=== PATIENT | male | born 2000 | race Asian ===

== ENCOUNTER 2024-01-30 18:54 | Emergency (ER) | payer BC, SELFPAY ==
[2024-01-30 18:59] VITALS: BP 115/75
[2024-01-30 19:43] VITALS: BP 111/79
[2024-01-30 20:00] VITALS: BP 105/75; BMI 17.5
[2024-01-30 20:09] LABS: Urine Albumin 1+ (Neg - Trace); Urine Bilirubin Negative (Negative); Urine Character Clear (Clear); Urine Color Amber; Urine Glucose Negative (Negative); Urine Ketone Negative (Negative); Urine Leukocyte Negative (Negative); Urine Nitrite Negative (Negative); Urine Occult Blood 1+ (Negative); Urine Urobilinogen Negative (Neg - 1+)
[2024-01-30 20:15] LABS: ALT (SGPT) 122 U/L (0-50); AST (SGOT) 141 U/L (17-59); Albumin 3.9 g/dl (3.5-5.0); Alkaline Phosphatase 130 U/L (38-126); Blood Urea Nitrogen 9 mg/dl (9-20); Calcium 8.7 mg/dl (8.4-10.2); Carbon Dioxide 19 mmol/L (22-30); Chloride 96 mmol/L (98-107); Estimated Creatinine Clearance 104 ml/min; Glucose 113 mg/dl (70-99); Potassium 4.2 mmol/L (3.5-5.1); Sodium 134 mmol/L (135-145); Total Bilirubin 0.4 mg/dl (0.2-1.3); Total Protein 7.4 g/dl (6.3-8.2); eGFR > 60.00
[2024-01-30 20:19] LABS: COVID-19 Antigen Negative (Negative)
[2024-01-30 20:24] LABS: Lactic Acid 0.9 mmol/L (0.7-2.0)
[2024-01-30 20:25] LABS: Urine Bacteria Few (Negative); Urine Mucus Moderate; Urine Red Blood Cell 0-2 /HPF (0-2)
[2024-01-30 20:35] LABS: % Basophils 0.3 % (0-2); % Immature Granulocytes 0.3 % (0-0.5); % Lymphocytes 23.6 % (20.5-51.1); % Monocytes 6.5 % (1.7-9.3); % Neutrophils 69.3 % (42.2-75.2); Absolute Lymphocytes 0.7 10^3/uL (1.2-3.4); Absolute Monocytes 0.2 10^3/uL (0.1-0.6); Hematocrit 34.2 % (39.0-52.0); Hemoglobin 11.8 g/dL (13.0-18.0); Mean Corp Hgb Conc. 34.5 g/dL (33.0-37.0); Mean Corpuscular Volume 69.5 fL (80.0-94.0); Mean Platelet Volume 9.2 fL (7.4-10.4); Nucleated Red Blood Cells % 0 % (-); Platelet Count 214 10^3/uL (130-400); Red Blood Cell Count 4.92 10^6/uL (4.70-6.10); Red Cell Dist. Width 15.3 % (11.5-14.5); White Blood Cell Count 2.9 10^3/uL (4.8-10.8)
--- NOTE | 2024-01-30 20:43 | ED.GENMED ---
Addendum entered and electronically signed by Lee Fontana PA-C 01/31/24 10:12:
Preliminary blood culture result demonstrates gram-negative bacilli. Called patient and advised he come back for evaluation
Original Note:
History of Present Illness
General
Chief Complaint: Fever
Time Seen by Provider: 01/30/24 19:53
History of Present Illness
History of Present Illness:
23-year-old male with history of Crohn's disease presents to the emergency department for evaluation of sore throat, body aches, chills, and generalized weakness associated with persistent fever ongoing for the past 8 days. Was recently in [place]
for 3 weeks and returned to the [place] 9 days before onset of symptoms. Reports mild dry cough and loose stool but denies any chest pain, vomiting, or rashes. No ill contacts at this travel libertarian. Does note that it was monsoon season in
[place] and there were numerous mosquitoes.
Review of Systems
Review of Systems
Allergies reviewed?: Yes
All Other Systems: ROS reviewed and negative except as documented in HPI and ROS
Phy Exam
Physical Exam
Physical Exam:
GEN: Well appearing, NAD, WDWN
Eyes: PERRLA, EOMs intact, no scleral icterus
HENT: NCAT, oral mucosa moist, no JVD, no cervical adenopathy.
Lungs: CTAB, no wheezes, rales, rhonchi, normal chest wall excursion
Cardiac: RRR, no M/R/G, no peripheral edema. Radial pulses 2+ bilat
Abdomen: S, NT, ND, NABS, no masses or hepatosplenomegaly
Neuro: AO x 3, no focal deficits to BUE/BLE, normal sensation throughout
MSK: No gross deformity or ecchymosis. No edema. No digital clubbing
Skin: No rashes, petechiae. Normal color, no pallor or jaundice.
Psych: Calm, cooperative, proper hygiene
Sepsis
Sepsis Screening
Sepsis Assessment: Sepsis Ruled Out
Sepsis Screen
Sepsis Screen: Sepsis Ruled Out
Date: 01/30/24
Time: 23:14
Course
Orders/Labs/Results
Orders:
Orders
01/30/24 19:34
Electrocardiogram (*1) Urgent
Reason for Study: Other
Other Reason for Exam: Possible Sepsis
Cardiac Monitoring- Treatment ONCE
IV Insert/Care/Rem.- Treatment PRN
O2 Therapy [RESP] Urgent
Titrate/Wean O2 to maintain O2 sat greater than (%): 93
Special Instructions: TO MAINTAIN CONTINUOUS O2 SATS > OR = 93%
Pulse Ox/cont/shift [RESP] Urgent
Quantity: 1
Special Instructions: CONTINUOUS
01/30/24 19:35
EKG- Treatment ONCE
01/30/24 19:51
Complete Blood Count/With Diff Urgent
Comprehensive Metabolic Panel Urgent
Monotest Urgent
Comment: ADD ON
Urinalysis Reflex To Culture Urgent
Date Specimen was Collected: 01/30/24
Time Specimen was Collected: 19:35
Urine Microscopic Reflex Cult Urgent
01/30/24 19:54
COVID-19 Antigen Routine
Source: Nasal Swab
Influenza A+B Rapid Molecular Urgent
MIK Source: Nasal Swab
Specimen Description:
01/30/24 19:58
Lactic Acid Q4H
Comment: ON ICE, CANCEL 2ND ORDER IF FIRST LACTIC ACID LEVEL <2
01/30/24 20:42
CR Chest - 2 Views Urgent
Comment:
Reason For Exam: FUO
01/30/24 20:57
Blood Culture Routine
MIK Source: Blood/Venous
Specimen Description:
Blood Culture Urgent
MIK Source: Blood/Venous
Specimen Description:
01/30/24 21:44
Add On- LAB Urgent
Tests Added?: monotest
Abnormal Lab Results
01/30/24
19:51
WBC 2.9 L 10^3/uL
(4.8-10.8)
Hgb 11.8 L g/dL
(13.0-18.0)
Hct 34.2 L %
(39.0-52.0)
MCV 69.5 L fL
(80.0-94.0)
MCH 24.0 L pg
(27.0-31.0)
RDW 15.3 H %
(11.5-14.5)
Absolute Lymphs (auto) 0.7 L 10^3/uL
(1.2-3.4)
Sodium 134 L mmol/L
(135-145)
Chloride 96 L mmol/L
(98-107)
Carbon Dioxide 19 L mmol/L
(22-30)
Glucose 113 H mg/dl
(70-99)
AST 141 H U/L
(17-59)
ALT 122 H U/L
(0-50)
Alkaline Phosphatase 130 H U/L
(38-126)
Ur Occult Blood Reflex 1+ A
(Negative)
Urine Bacteria (Reflex) Few A
(Negative)
Urine Albumin (Reflex) 1+ A
(Neg - Trace)
01/30/24 19:51
01/30/24 19:51
Vital Signs
Initial and Last Documented VS:
Initial Vital Signs
Temp Pulse Resp BP Pulse Ox
100.7 F H 117 20 115/75 100
01/30/24 18:59 01/30/24 18:59 01/30/24 18:59 01/30/24 18:59 01/30/24 18:59
Last Documented Vital Signs
Temp Pulse Resp BP Pulse Ox
100.7 F H 112 25 100/70 99
01/30/24 18:59 01/30/24 21:15 01/30/24 20:30 01/30/24 21:00 01/30/24 20:45
MDM/Problems Addressed
MDM/Problems Addressed:
Patient is overall well-appearing and broad workup reveals no significant abnormalities. Mild leukopenia likely indicative of self-limited viral syndrome. Highly unlikely this case represents malaria given the patient's overall well appearance.
Discussed further supportive care and return parameters
*Critical Care Note
Total Time (30-74mins, 75-104mins- exclusive of procedures): Not Applicable
ED Attending Note
-
Portions of this chart may have been created with voice recognition software.� Occasional wrong word or��sound alike� substitutions may have occurred due to the inherent limitations of voice recognition software.
Discharge Plan
Departure
Patient Disposition: Home (Routine Discharge)
Date of Disposition: 01/30/24
Time of Disposition: 22:34
Patient with high blood pressure during this ER visit?: No
Discharge Problem:
Acute viral syndrome
Instructions: Viral Syndrome (DC)
Referrals:
Karlos Carcamo MD [Family Provider] -
Interventions
Interventions:
*Risk Screen - Suicide Last Done: 01/30/24 18:59
*General Assessment Last Done: 01/30/24 18:59
*Neglect/Abuse Screening Last Done: 01/30/24 18:59
ED- Fall Risk Assessment Last Done: 01/30/24 18:59
*ED COVID-19 Vaccine History Last Done: 01/30/24 18:59
ED- Neurological Assessment Last Done: 01/30/24 20:00
ED-Skin Assessment Last Done: 01/30/24 20:00
Discharge Date and Time
Print Language: STATELESS
[2024-01-30 21:00] VITALS: BP 100/70
[2024-01-30 22:19] LABS: Monotest Negative (Negative)
== END 2024-01-30 22:50 | disposition home or self-care (01) ==
LOC: EMR 18:54
PROVIDERS: Student in an Organized Health Care Education/Training Program; EMERGENCY PHYSICIAN Emergency Medicine; FAMILY PHYSICIAN Family Medicine
DX: B34.9 Viral infection, unspecified (principal)
CPT/HCPCS: 99285; 71046; 80053; 81003; 81015; 83605; 85025; 86308; 87040; 87149; 87184; 87186; 87205; 87502; 87811; 93005

== ENCOUNTER 2024-01-31 14:02 | Inpatient (IN) | payer BC, SELFPAY ==
[2024-01-31 11:52] VITALS: BP 107/69
--- NOTE | 2024-01-31 12:35 | ED.GENMED ---
History of Present Illness
General
Chief Complaint: Abnormal Lab Value
Time Seen by Provider: 01/31/24 12:33
History of Present Illness
History of Present Illness:
23-year-old male with history of Crohn's presents the emergency department due to fever of unknown origin and a positive blood culture. He was seen in the emergency department yesterday by myself for 8 days of fever, at this time and is now 9 days
of consistent fever. Broad workup yesterday was unrevealing except for leukopenia and transaminitis. Blood cultures were sent and 1 out of 2 returned positive for gram-negative rods this morning thus he was called to come back to the hospital. He
denies any change to his symptoms compared to yesterday
Review of Systems
Review of Systems
Allergies reviewed?: Yes
All Other Systems: ROS reviewed and negative except as documented in HPI and ROS
Phy Exam
Physical Exam
Physical Exam:
GEN: Well appearing, NAD, WDWN
HEENT: Oral mucosa moist, no scleral icterus
Cardiac: Regular rate
Lung: No respiratory distress, no tachypnea
MSK: No gross deformity or injuries
Skin: Good color, no pallor or jaundice, no rashes
Neuro: AO x3, moves all extremities freely
Psych: Calm, cooperative
Course
Orders/Labs/Results
Orders:
Orders
01/31/24 Breakfast
Regular
At Your Request: Full Participation
01/31/24 13:12
Complete Blood Count/With Diff Urgent
Comprehensive Metabolic Panel Urgent
Manual Differential Urgent
Blood Culture Urgent
MIK Source: Blood/Venous
Specimen Description:
01/31/24 13:39
Admit/Transfer Patient As Directed
Co-Sign Provider:
Level of Care: Inpatient admission
Assign to:: Medical/Surgical
Physician / Group: maged
Diagnosis: fever
Reason for Hospitalization: fever
Expected length of stay greater than two midnights?: Yes
ELOS- Estimated Length of Stay in days: 3
I certify the patient meets the requirements for IP care: Yes
PRN Pain Medication Management As Directed
May give lesser potent ordered pain med per pt: Yes
preference::
Protocol:: Medication orders for pain may be administered in a
manner that supports deferring to patient preference
when the pt is:
- Requesting an ordered lesser potent pain medication.
Least to most potent pain medications are defined
as: acetaminophen < NSAID < tramadol < opioids
(morphine, oxycodone, hydromorphone).
- Requesting a lesser dose of the same medication IF
ORDERED.
- Requesting a less intrusive route of administration
if both routes are prescribed by the provider (PO <
IV).
01/31/24 13:40
Code Status As Directed
Resuscitation Status: Full Code
01/31/24 13:58
Cefepime HCl [Maxipime] 2,000 mg IV NOW STA
01/31/24 14:01
Sterile Water [Sterile Water For Injection] 10 ml IV NOW STA
01/31/24 14:19
Blood Culture Routine
MIK Source: Blood/Venous
Specimen Description:
01/31/24 16:00
0.9% Sodium Chloride 1000 ml [Nss] 1,000 ml IV 125 mls/hr
Acetaminophen [Tylenol] 650 mg PO Q4HPRN PRN
Bisacodyl [Dulcolax] 10 mg RECTAL [id number] PRN
Cefepime HCl [Maxipime] 2,000 mg IV Q8H
Docusate W/Senna [Senokot-S] 1 tablet PO BIDPRN PRN
Polyethylene Glycol Powder [Miralax] 17 grams PO DAILYPRN PRN
01/31/24 16:00
Activity As Directed
Activity Level: As Tolerated
Venous Foot Pumps As Directed
Location: Bilateral feet
Vital Signs As Directed
Frequency: Per unit guidelines
DX Deep Vein Thrombosis Video Routine
02/01/24 06:00
CMP [Comprehensive Metabolic Panel] IN AM
Complete Blood Count/With Diff IN AM
02/01/24 08:00
Cholecalciferol (Vitamin D3) [VITAMIN D3 (cholecalciferol)] 25 mcg PO DAILY
Ferrous Sulfate [Feosol] 325 mg PO DAILY
Vitamin B Complex with C [B COMPLEX w/VITAMIN C] 1 caplet PO DAILY
02/02/24 06:00
CMP [Comprehensive Metabolic Panel] IN AM
Complete Blood Count/With Diff IN AM
02/03/24 06:00
CMP [Comprehensive Metabolic Panel] IN AM
Complete Blood Count/With Diff IN AM
02/04/24 06:00
CMP [Comprehensive Metabolic Panel] IN AM
Complete Blood Count/With Diff IN AM
02/05/24 06:00
CMP [Comprehensive Metabolic Panel] IN AM
Complete Blood Count/With Diff IN AM
Abnormal Lab Results
01/31/24
13:12
WBC 3.0 L 10^3/uL
(4.8-10.8)
RBC 4.28 L 10^6/uL
(4.70-6.10)
Hgb 10.2 L g/dL
(13.0-18.0)
Hct 29.6 L %
(39.0-52.0)
MCV 69.2 L fL
(80.0-94.0)
MCH 23.8 L pg
(27.0-31.0)
RDW 15.2 H %
(11.5-14.5)
Band Neutrophils 12 H %
(0-3)
Lymphocytes (Manual) 10 L %
(20-51)
Sodium 131 L mmol/L
(135-145)
Carbon Dioxide 20 L mmol/L
(22-30)
Glucose 121 H mg/dl
(70-99)
Calcium 8.2 L mg/dl
(8.4-10.2)
AST 109 H U/L
(17-59)
ALT 108 H U/L
(0-50)
Albumin 3.3 L g/dl
(3.5-5.0)
01/31/24 13:12
01/31/24 13:12
Vital Signs
Initial and Last Documented VS:
Initial Vital Signs
Temp Pulse Resp BP Pulse Ox
99.2 F 111 18 107/69 98
01/31/24 11:52 01/31/24 11:52 01/31/24 11:52 01/31/24 11:52 01/31/24 11:52
Last Documented Vital Signs
Temp Pulse Resp BP Pulse Ox
99.6 F 90 17 105/64 99
01/31/24 16:00 01/31/24 16:00 01/31/24 16:00 01/31/24 16:00 01/31/24 16:00
MDM/Problems Addressed
MDM/Problems Addressed:
Will admit for further workup and clarification of his positive blood culture. Interestingly he is more anemic than yesterday which would potentially suggest an underlying etiology such as malaria which was not felt to be highly likely yesterday.
*Critical Care Note
Total Time (30-74mins, 75-104mins- exclusive of procedures): Not Applicable
ED Attending Note
-
Portions of this chart may have been created with voice recognition software.� Occasional wrong word or��sound alike� substitutions may have occurred due to the inherent limitations of voice recognition software.
Discharge Plan
Departure
Patient Disposition: Admit
Date of Disposition: 01/31/24
Time of Disposition: 13:10
Admit to: Med/Surg
Presentation/result/management discussed w/ accepting MD/DO: Hospitalist
Discharge Problem:
Fever of unknown origin (FUO), Positive blood culture
Interventions
Interventions:
*Risk Screen - Suicide Last Done: 01/31/24 11:52
*General Assessment Last Done: 01/31/24 11:52
*Neglect/Abuse Screening Last Done: 01/31/24 11:52
ED- Fall Risk Assessment Last Done: 01/31/24 13:17
*ED COVID-19 Vaccine History Last Done: 01/31/24 13:17
*Nursing Disposition Last Done: 01/31/24 16:01
Discharge Date and Time
Discharge Date/Time: 01/31/24 15:50
--- NOTE | 2024-01-31 13:12 | HPS.HSE ---
Family Physician
-
Family Physician:
Chief Complaint
-
fever
History of Present Illness
23-year-old male presented to us with fever for 10 days. he was in [place] three weeks ago. he was doing fine and a ten days ago, he started having fever. fever was from 101-104. he was taking Tylenol, NyQuil and DayQuil. denied runny nose,
congestion, cough. stated PETERSON and dizzy. denied abdominal pain,n,v,d. denied dysuria or hematuria.patient lost 6lbs in 6 weeks due to the travel, of his grandfather.
patient was evaluated in ER yesterday. blood culture from yesterday grew pam negative Bacilli. admitting for further management.
Medical History
Past Medical History
Past Medical History: Reports None
Past Surgical History: Reports None
Social History
Tobacco: Non-smoker
Alcohol: None
Drug: None
Personal: Single
Living: With Family
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
Family History
Family History: Not pertinent
Allergies / Home Medications
Allergies reflects when Allergies were last updated in [facility].
Home Medications with original date entered in [facility]
Allergy/Medication List:
Allergies
Allergy/AdvReac Type Severity Reaction Status Date / Time
No Known Allergies Allergy Verified 01/30/24 18:59
Home Medications
acetaminophen 500 mg tablet (Tylenol Extra Strength) 500 mg PO Q6HPRN PRN mild pain 01/31/24
cholecalciferol (vit D3) 1,000 unit-vitamin K2 (MK4) 100 mcg tablet 1 tab PO DAILY 01/31/24
ferrous sulfate 105 mg-C 500 mg-folic acid 800 mcg tablet,extend.rel 1 tab PO DAILY 01/31/24
vitamin B complex 1 tab PO DAILY 01/31/24
Review of Systems
-
Constitutional: Reports Fever
EENT: Reports No Symptoms
Respiratory: Reports No Symptoms
Cardiac: Reports No Symptoms
Abdomen/GI: Reports No Symptoms
: Reports No Symptoms
Musculoskeletal: Reports No Symptoms
Skin: Reports No Symptoms
Neurological: Reports Dizzy and Headache
Endocrine: Reports No Symptoms
Hematologic/Lymphatic: Reports No Symptoms
Psych: Reports No Symptoms
Physical Exam
Vital Signs
Vital Signs
Temp Pulse Resp BP Pulse Ox
99.2 F 111 18 107/69 98
01/31/24 11:52 01/31/24 11:52 01/31/24 11:52 01/31/24 11:52 01/31/24 11:52
Physical Exam
General: Well Developed, Well Nourished and No Apparent Distress
HEENT: NormoCephalic, Moist mucous membranes and Atraumatic
Respiratory: Clear
Cardiac: S1/S2 and Regular Rhythm; No Murmur or Rub
GI: Soft, Non Tender, Non Distended and Normal Bowel Sounds; No Organomegaly
Rectal: Deferred by Provider
Musculoskeletal: No Clubbing, No Cyanosis and No Edema
Skin: No Rash
Neuro: AO x 3 and Nonfocal/grossly intact
Psych: Calm
Data Reviewed
-
Diagnostic Radiology: Report Reviewed by me
Lab Data: Labs Reviewed by me
Impression/Plan
-
#fever/gram negative bacteremia
-wbc 3.0
-blood culture from 01/29 with gram negative
-repeat blood culture
-Tylenol prn for fever
-chest x ray normal
-covid, flu negative
-iv cefipime continued
-ctm
#anemia of chronic disease
-hgb 10.2
-ferrous sulfate continued
#transaminitis
-denied abdominal pain
-ctm
#hyponatremia hypovolemic
-fluids continued
-monitor BMP
#DVT prophylaxis
-scd
#CODE Status
-full code
[2024-01-31 13:17] VITALS: BP 92/68
[2024-01-31 13:26] LABS: Hematocrit 29.6 % (39.0-52.0); Hemoglobin 10.2 g/dL (13.0-18.0); Mean Corp Hgb Conc. 34.5 g/dL (33.0-37.0); Mean Corpuscular Hgb 23.8 pg (27.0-31.0); Mean Corpuscular Volume 69.2 fL (80.0-94.0); Platelet Count 197 10^3/uL (130-400); Red Blood Cell Count 4.28 10^6/uL (4.70-6.10); Red Cell Dist. Width 15.2 % (11.5-14.5)
[2024-01-31 13:39] LABS: ALT (SGPT) 108 U/L (0-50); AST (SGOT) 109 U/L (17-59); Albumin 3.3 g/dl (3.5-5.0); Alkaline Phosphatase 96 U/L (38-126); Blood Urea Nitrogen 11 mg/dl (9-20); Calcium 8.2 mg/dl (8.4-10.2); Carbon Dioxide 20 mmol/L (22-30); Chloride 98 mmol/L (98-107); Glucose 121 mg/dl (70-99); Potassium 3.7 mmol/L (3.5-5.1); Sodium 131 mmol/L (135-145); Total Bilirubin 0.3 mg/dl (0.2-1.3); Total Protein 6.4 g/dl (6.3-8.2); eGFR > 60.00
[2024-01-31 14:17] LABS: Absolute Neutrophils -Man Diff 2.5 10^3/uL (1.4-6.5); Band Neutrophils 12 % (0-3); Lymphocytes 10 % (20-51); Monocytes 4 % (2-9); Myelocytes 1 % (-); Platelets Checked Yes; Segmented Neutrophils 73 % (42-75)
[2024-01-31 14:18] LABS: Anisocytosis 1+; Hypochromasia 1+; Normal RBC Morphology No; Polychromasia 1+; Total Cells Counted 100
--- NOTE | 2024-01-31 14:45 | W.PN.UPDATE ---
Update Note
Progress Note Update
This is an addendum to the H&P written by Hailee Gotti on 01/31/2024. Patient seen and examined independently with OIL OPERATOR.
23-year-old male without past medical history recently visited [facility] 2 weeks ago here with fever, dizziness, headache, neck pain starting 10 days ago. No more neck pain. No pulmonary, GI symptoms. No joint pains. He came to emergency room
yesterday with cultures growing 2 out of 2 gram-negative bacteremia. Chest x-ray yesterday was unremarkable.
Labs show leukopenia, transaminitis. Unclear source of infection. Could be indicative of malaria. No symptoms of dengue. Start cefepime. Check hepatitis panel. Will need to check peripheral smear. ID consulted.
--- NOTE | 2024-01-31 14:54 | CON.ID ---
Consultation
-
Date/Time Consultation Requested: January 31, 2024 1430
Date/Time Consultation Performed: January 31, 2024 1455
Requesting Provider: Hailee Gotti
Performing Provider: Dr. Rhoda Givens
Reason for Consultation: Fever, GNR bacteremia
Chief Complaint / Past History
Chief Complaint
Fevers
History of Present Illness
History obtained from the patient, his sister, and mother at bedside. 23-year-old male recently diagnosed with Crohn's who presents to the hospital today with gram-negative kathryn bacteremia. He and his family recently traveled to [facility] due
to the of his grandfather. He stayed in [place] x 3 weeks with return date January 14. On January 21 he developed fevers, headache, dizziness, pain on the back of his neck. No sore throat. Headache,dizziness, neck pain resolved. However
the fevers persisted as high as 104.1. Occasional night sweats. No nausea or vomiting. No abdominal pain. Has slight loose stools. He was taking Tylenol 500 mg every 6 hours as needed. He then went to an urgent care and he was diagnosed with a
viral illness. He was recommended to take Tylenol 1000 mg twice a day as needed. He then saw his PCP last week and again he was diagnosed with a viral illness. Tylenol does decrease back to 500 mg every 6 hours as needed. He continued to have
fevers and therefore presented to the ER January 29. Temperature 100.7 . COVID-negative. Influenza negative. UA neg. Chest x-ray normal. LFTs elevated. Monoscreen negative. Blood cultures drawn and he was discharged to home. Today he
received a call from the ED and the blood cultures are positive for gram-negative rods. He therefore returned to the ER. While in [place], he was worked up for chronic epigastric discomfort with nausea. He underwent upper endoscopy which was
normal. CAT scan of the abdomen pelvis showed colonic thickening. On January 07, he underwent colonoscopy and was told colon was inflamed. Colon biopsy was positive for Crohn's, negative AFB. After the colonoscopy he had a flareup of the
epigastric discomfort and nausea. While in [place], he ate well cooked meals. He always drank from bottled water. No ice. At his grandfather's , the food was catered. However no one else became ill eating the same food. He did not receive
travel counseling prior to his trip due the urgency of the matter. He and his sister stayed in the clean apartment. He stayed in the city the whole time. No animal exposure. He was bitten by mosquitoes. [place] the [place], he was initially
fine until 01/21. No ill contacts. He takes public transportation to [facility] for his studies.
Past History
Additional Past Medical History:
Crohn's dx'd in [place] s/p EGD, CT a/p, then colonoscopy 01/08/2024
Chronic leukopenia
Chronic anemia
Allergy History:
No Known Allergies Allergy (Verified 01/30/24 18:59)
Medications Reviewed: Yes
Current Antibiotics:
cefepime
Social History
Tobacco: Non-Smoker
Alcohol: None
Drug: None
Personal: Single
Living: With Family (Sister and mother)
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
Family History
Family History: Not Pertinent
Review of Systems
Review of Systems
General: Fever, Chills and Change in Appetite
HEENT: Negative Lymphadenopathy, Stiff Neck, Sinus Problems, Headache or Pharyngitis
Cardiovascular: Negative Chest Pain or Dyspnea
Respiratory: Negative Dyspnea or Cough
Gasteroenterology: Weight Loss; Negative Nausea or Vomiting
Genital / Urological: Negative Dysuria or Flank Pain
Endocrine: Weakness
Musculoskeletal: Negative Joint Pain or Joint Swelling
All systems: All other systems were reviewed and were negative
Vital Signs
Temp Pulse Resp BP Pulse Ox
99.1 F 96 16 92/68 98
01/31/24 13:17 01/31/24 13:17 01/31/24 13:17 01/31/24 13:17 01/31/24 13:17
Physical Exam
Physical Exam
Constitutional: No Acute Distress, Comfortable and Other (Thin)
Head: Other (No frontal or maxillary sinus tenderness)
Eyes: No Conjunctival Hemorrhage and Sclera Anicteric
Pharynx: Benign
Oral: No Thrush and No Ulcers
Lymph Nodes: Negative Lymphadenopathy
Cardiovascular: Regular Rate and S1/S2; Negative Murmur
Pulmonary: Clear
Gastrointestinal: Soft, Non Tender, Non Distended and Normal Bowel Sounds
Genito-Urinary: Negative CVA Tenderness
Skin: Negative Rash
Neurological: AO x 3
Lab / Diagnostic Study Results
01/31/24 13:12
01/31/24 13:12
Total Counted 100 01/31/24 13:12
Abs Neuts (Manual) 2.5 10^3/uL (1.4-6.5) 01/31/24 13:12
Segmented Neutrophils 73 % (42-75) 01/31/24 13:12
Band Neutrophils 12 % (0-3) H 01/31/24 13:12
Lymphocytes (Manual) 10 % (20-51) L 01/31/24 13:12
Microbiology Results
Micro:
01/31/24 14:19 Blood Culture - Pending
Blood/Venous
01/31/24 13:12 Blood Culture - Pending
Blood/Venous
01/30/24 CXR: Normal
Assessment / Plan
# Anaerobic GNR bacteremia (2 sets)
# Fevers, onset 01/22/24
# Elevated transaminases
# Recent travel to [place] x 3 weeks, return date 01/15/24
# Recent dx Crohn's in [place], s/p EGD, then colonoscopy 01/08/24
# Anemia - chronic
# Leukopenia -chronic
- Unlikely typhoid fever as S. typhi is aerobic GNR
- Suspect Fusobacterium over Bacteroides, Prevotella
- Ordered CT a/p with IV and oral contrast to look for GI source
-DC cefepime.
- Start ceftriaxone and metronidazole.
- Follow temps, LFT's.
[2024-01-31] MEDS: MAXIPIME 2000 MG IV (14:56)
[2024-01-31] MEDS: STERILE WATER FOR INJECTION 10 ML IV (14:56)
[2024-01-31 16:00] VITALS: BP 105/64
[2024-01-31] MEDS: FLAGYL 500 MG 100 IV (17:04)
[2024-01-31] MEDS: NSS 1000 IV (17:14)
[2024-01-31] MEDS: TYLENOL 650 MG PO (18:48)
[2024-01-31] MEDS: STERILE WATER FOR INJECTION 20 ML IV (22:16)
[2024-01-31] MEDS: ROCEPHIN 2000 MG IV (22:17)
[2024-01-31 23:15] VITALS: BP 103/66
[2024-02-01] MEDS: FLAGYL 500 MG 100 IV ×4 (01:00→23:16)
[2024-02-01] MEDS: NSS 1000 IV ×2 (01:04→08:23)
[2024-02-01] MEDS: TYLENOL 650 MG PO ×3 (03:22→20:52)
--- NOTE | 2024-02-01 06:22 | PTCARENOTE ---
@2230; Pt had eaten ,home cooked rice ,about 15 minutes prior to administration of 10ml of ceftriaxone 2 grams IV. With in 2 minutes ,pt vomited immediately with no nausea prior. After vomiting moderate amount of digested rice ,pt felt better. No
nausea/pain.Only 1/2 of the medication was administered.@2237; Instructed VIJAY Philip on above note,via TT .VIJAY Philip gave instructions to slowly administer the remaining 10ml medication. Ceftriaxone 10ml IV administered and tolerated
well.@0600;No further vomiting noted.
[2024-02-01 06:53] LABS: Hematocrit 28.2 % (39.0-52.0); Hemoglobin 9.8 g/dL (13.0-18.0); Mean Corp Hgb Conc. 34.8 g/dL (33.0-37.0); Mean Corpuscular Hgb 24.7 pg (27.0-31.0); Mean Corpuscular Volume 71.2 fL (80.0-94.0); Mean Platelet Volume 9.1 fL (7.4-10.4); Platelet Count 175 10^3/uL (130-400); Red Blood Cell Count 3.96 10^6/uL (4.70-6.10); Red Cell Dist. Width 14.9 % (11.5-14.5); White Blood Cell Count 3.4 10^3/uL (4.8-10.8)
[2024-02-01 07:00] VITALS: BP 92/59
[2024-02-01 07:03] LABS: ALT (SGPT) 116 U/L (0-50); AST (SGOT) 112 U/L (17-59); Albumin 2.8 g/dl (3.5-5.0); Alkaline Phosphatase 90 U/L (38-126); Blood Urea Nitrogen 8 mg/dl (9-20); Calcium 7.9 mg/dl (8.4-10.2); Carbon Dioxide 21 mmol/L (22-30); Chloride 100 mmol/L (98-107); Estimated Creatinine Clearance 104 ml/min; Glucose 104 mg/dl (70-99); Sodium 133 mmol/L (135-145); Total Bilirubin 0.3 mg/dl (0.2-1.3); Total Protein 5.9 g/dl (6.3-8.2); eGFR > 60.00
--- NOTE | 2024-02-01 08:05 | W.PN.HOSP.TC ---
Today's Communication/Plan
-
cont Abx
repeat Bcx
CT abd
Assessment / Plan
Assessment / Plan
23yo M with recent trip to [facility], came back on 01/15/24 developed fevers in the evening of 01/22/24 with headache and neck pain. Headache and neck pain resolved, but Bcx from 01/30/24 done in ED found bacteremia.
A/P:
#Bacteremia
Bcx GNB
repeat Bcx
ID consult: CT and/pelvis and Ceftriaxone/Flagyl
#transaminitis
without bilirubinemia
CT abd pending
hepatitis panel
#LORI
cont iron
#Mild leukopenia
reactive
follow CBC
DVT ppx lovenox
Full code
I have spent at least 59min reviewing chart, test results, communication with consultants and direct patient care
Anticipated Discharge: > 48 hours
Subjective/Interval History
-
Date of Service: February 01, 2024
Objective Data
-
Labs:
Laboratory Results
02/01/24
06:04
WBC 3.4 L
Hgb 9.8 L
Hct 28.2 L
Plt Count 175
Sodium 133 L
Potassium 4.0
Chloride 100
Carbon Dioxide 21 L
BUN 8 L
Creatinine 0.9
Glucose 104 H
Calcium 7.9 L
Total Bilirubin 0.3
AST 112 H
ALT 116 H
Alkaline Phosphatase 90
Vital Signs:
Vital Signs
Temp Pulse Resp BP Pulse Ox
97.4 F 99 17 103/66 98
02/01/24 06:05 01/31/24 23:15 01/31/24 23:15 01/31/24 23:15 01/31/24 23:15
I&O
01/31/24 02/01/24 02/02/24
06:59 06:59 06:59
Intake Total 1954
Balance 1954
Review of Systems
-
History Source: Patient
All other systems: Reviewed and negative
Physical Exam
-
General: No Apparent Distress
HEENT: Atraumatic and Moist Mucous Membranes
Respiratory: Clear to Auscultation; Negative Wheezes
Cardiac: Regular Rhythm; Negative Murmur
GI: Soft, Nontender, Nondistended and Normal Bowel Sounds
Musculoskeletal: No Clubbing, No Cyanosis and No Edema
Skin: Warm; Negative Rash
Neuro: Awake, Alert, Oriented, AO x 3 and No Motor Deficits
Psych: Calm
[2024-02-01] MEDS: VITAMIN D3 (cholecalciferol) 25 MCG PO (08:22)
[2024-02-01] MEDS: FOLVITE 0.8 MG PO (08:22)
[2024-02-01] MEDS: FEOSOL 325 MG PO (08:22)
[2024-02-01] MEDS: B COMPLEX w/VITAMIN C 1 CAPLET PO (08:22)
[2024-02-01] MEDS: OMNIPAQUE 50 ML PO (08:41)
[2024-02-01 08:49] LABS: % Basophils 0.3 % (0-2); % Immature Granulocytes 1.8 % (0-0.5); % Lymphocytes 17.5 % (20.5-51.1); % Monocytes 10.4 % (1.7-9.3); Absolute Immature Granulocytes 0.1 10^3/uL (0-0.05); Absolute Lymphocytes 0.6 10^3/uL (1.2-3.4); Absolute Monocytes 0.4 10^3/uL (0.1-0.6); Absolute Neutrophils 2.4 10^3/uL (1.4-6.5); Nucleated Red Blood Cells % 0.6 % (-)
--- NOTE | 2024-02-01 09:48 | PTCARENOTE ---
pt could not tolerate contrast, said he didn't like the taste, refused offer to try with juice instead. Dr Givens will change the CT to w/o oral contrast. Now IV contrast.
--- NOTE | 2024-02-01 11:22 | W.PN.ID1 ---
Date of Service
Date of Service: February 01, 2024
Today's Communication
See below.
Assessment / Plan
# Anaerobic GNR bacteremia (4 sets)
# Fevers persist, onset 01/22/24
# Elevated transaminases
# Recent travel to [place] [facility] x 3 weeks, return date 01/15/24
# Recent dx Crohn's in [place], s/p EGD, then colonoscopy 01/08/24
# Anemia - chronic, no previous workup
# Leukopenia -chronic
- Per family, 2 of grandmother's maids in [place] with typhoid fever. Maids prepared food when pt in [place].
Of note S. typhi is aerobic GNR. However ceftriaxone should cover pending cx data.
- Suspect Fusobacterium
- Pt can't tolerate po contrast. Change CT a/p to IV contrast only to eval for intra-abd infection
- Check malaria smear.
- Pt consented to HIV screen.
- Continue ceftriaxone and metronidazole (d2).
- Follow temps
- Advised family against discharge at this time.
Chief Complaint
-: Fever and Bacteremia
Subjective / Review of Systems
Mom and sister at bedside.
Pt feels very weak, tired. + nausea
Unable to tolerate oral contrast.
Per mom, 2 of the maids for pt's grandmother positive for typhoid fever. Maids prepared food for family when in [place].
Vital Signs / Physical Exam
Vital Signs
Vital Signs
Temp Pulse Resp BP Pulse Ox
98.3 F 89 18 92/59 100
02/01/24 07:00 02/01/24 07:00 02/01/24 07:00 02/01/24 07:00 02/01/24 07:00
Selected Entries
01/30/24
18:59 01/31/24
18:45 02/01/24
03:00
Temp 100.7 F H 103.1 F H 103 F H
Physical Exam
Constitutional: Acutely Ill and Cachetic
Cardiovascular: Regular Rate and S1/S2
Pulmonary: Clear
Gastrointestinal: Soft, Non Tender, Non Distended and Normal Bowel Sounds
Genito-Urinary: Negative CVA Tenderness
Extremities: Negative Edema
Objective Data
Lab Data
Lab Results
02/01/24 06:04
02/01/24 06:04
Estimated Creat Clear 104 ml/min 02/01/24 06:04
Total Bilirubin 0.3 mg/dl (0.2-1.3) 02/01/24 06:04
AST 112 U/L (17-59) H 02/01/24 06:04
ALT 116 U/L (0-50) H 02/01/24 06:04
Alkaline Phosphatase 90 U/L (38-126) 02/01/24 06:04
Most recent labs reviewed.
Micro Results:
02/01/24 10:05 Blood Culture - Pending
Blood/Venous
02/01/24 08:21 Blood Culture - Pending
Blood/Venous
01/31/24 14:19 Blood Culture - Preliminary
Blood/Venous Positive culture in progress
Gram Stain - Preliminary
01/31/24 13:12 Blood Culture - Preliminary
Blood/Venous Positive culture in progress
Gram Stain - Preliminary
01/30/24 CXR: Normal
Care Review
Plan reviewed with: Nurse
[2024-02-01 15:00] VITALS: BP 103/65
--- NOTE | 2024-02-01 17:29 | CM ---
met with patient mother and sister at bedside.patient lives with family in house with 5 shawn,his bed and bath is on the second level,he amb i and was i with his adl.he has never had a vn or been to ip rehab inpast.
pcp: dr zarate and he uses [facility].
PMH: chronic anemia,chronic leukemia,crohn;s disease sp egd/colonoscopy
patient adm with fever/gn bactremia.Patient had rcecent [address] [facility]-(several maids had typhoid fever who cooked food).on iv rocephin,iv flagyl,monitor fevers.ct a/p.ivf.Plan:home when stable for dc with no needs.
[2024-02-01] MEDS: ROCEPHIN 2000 MG IV (20:53)
[2024-02-01] MEDS: STERILE WATER FOR INJECTION 20 ML IV (20:53)
[2024-02-01 23:00] VITALS: BP 92/40
[2024-02-02] MEDS: NSS 1000 IV (01:14)
[2024-02-02 07:00] VITALS: BP 97/58
[2024-02-02] MEDS: TYLENOL 650 MG PO ×2 (08:47→21:37)
[2024-02-02] MEDS: B COMPLEX w/VITAMIN C 1 CAPLET PO (08:47)
[2024-02-02] MEDS: FEOSOL 325 MG PO (08:48)
[2024-02-02] MEDS: FLAGYL 500 MG 100 IV (08:48)
[2024-02-02] MEDS: VITAMIN D3 (cholecalciferol) 25 MCG PO (08:49)
[2024-02-02] MEDS: FOLVITE 0.8 MG PO (08:49)
[2024-02-02 09:34] LABS: ALT (SGPT) 103 U/L (0-50); AST (SGOT) 71 U/L (17-59); Alkaline Phosphatase 99 U/L (38-126); Blood Urea Nitrogen 6 mg/dl (9-20); Calcium 8.4 mg/dl (8.4-10.2); Carbon Dioxide 16 mmol/L (22-30); Chloride 102 mmol/L (98-107); Estimated Creatinine Clearance 118 ml/min; Glucose 103 mg/dl (70-99); Potassium 3.6 mmol/L (3.5-5.1); Sodium 134 mmol/L (135-145); Total Bilirubin 0.3 mg/dl (0.2-1.3); eGFR > 60.00
[2024-02-02 09:50] LABS: % Basophils 0.3 % (0-2); % Immature Granulocytes 0.5 % (0-0.5); % Lymphocytes 25.7 % (20.5-51.1); % Monocytes 6.3 % (1.7-9.3); % Neutrophils 67.2 % (42.2-75.2); Absolute Monocytes 0.3 10^3/uL (0.1-0.6); Absolute Neutrophils 2.7 10^3/uL (1.4-6.5); Hematocrit 29.7 % (39.0-52.0); Hemoglobin 10.2 g/dL (13.0-18.0); Mean Corp Hgb Conc. 34.3 g/dL (33.0-37.0); Mean Corpuscular Hgb 24.2 pg (27.0-31.0); Mean Corpuscular Volume 70.5 fL (80.0-94.0); Mean Platelet Volume 8.8 fL (7.4-10.4); Nucleated Red Blood Cells % 0 % (-); Platelet Count 245 10^3/uL (130-400); Red Blood Cell Count 4.21 10^6/uL (4.70-6.10); Red Cell Dist. Width 15.4 % (11.5-14.5)
--- NOTE | 2024-02-02 09:52 | W.PN.HOSP.TC ---
Today's Communication/Plan
-
cont Abx and pending Bcx
Assessment / Plan
Assessment / Plan
23yo M with recent trip to [facility], came back on 01/15/24 developed fevers in the evening of 01/22/24 with headache and neck pain. Headache and neck pain resolved, but Bcx from 01/30/24 done in ED found bacteremia.
As per patient - his family memner in [place] recently was diagnosed with typhus.
A/P:
#Bacteremia with enterocolitis
Bcx GNB in anaerobic bottle
repeat Bcx NTD
ID consult: CT and/pelvis showed colitis with inflammation
cont Ceftriaxone/Flagyl
#transaminitis
without bilirubinemia
CT abd pending
hepatitis panel
#LORI
cont iron
#Mild leukopenia
reactive
follow CBC
HIV test pending
Tb quantiferon pending
DVT ppx lovenox
Full code
I have spent at least 39min reviewing chart, test results, communication with consultants and direct patient care
Anticipated Discharge: > 48 hours
Subjective/Interval History
-
Date of Service: February 02, 2024
Objective Data
-
Labs:
Laboratory Results
02/02/24
08:57
WBC 4.0 L
Hgb 10.2 L
Hct 29.7 L
Plt Count 245 D
Sodium 134 L
Potassium 3.6
Chloride 102
Carbon Dioxide 16 L
BUN 6 L
Creatinine 0.8
Glucose 103 H
Calcium 8.4
Total Bilirubin 0.3
AST 71 H
ALT 103 H
Alkaline Phosphatase 99
Vital Signs:
Vital Signs
Temp Pulse Resp BP Pulse Ox
103.0 F H 119 18 97/58 100
02/02/24 07:00 02/02/24 07:00 02/02/24 07:00 02/02/24 07:00 02/02/24 07:00
I&O
02/01/24 02/02/24 02/03/24
06:59 06:59 06:59
Intake Total 1954 1200 / 1200
Output Total 100 / 100
Balance 1954 1100 / 1100
Review of Systems
-
History Source: Patient
All other systems: Reviewed and negative
Physical Exam
-
General: No Apparent Distress
HEENT: Normocephalic
Neuro: Awake, Alert, Oriented and AO x 3
Psych: Calm
--- NOTE | 2024-02-02 10:13 | W.PN.ID1 ---
Date of Service
Date of Service: February 02, 2024
Today's Communication
Continue ceftriaxone. DC metronidazole.
Assessment / Plan
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
# Enteric/typhoid fever
# Elevated transaminases
# Recent travel to [place] [facility] x 3 weeks, return date 01/15/24
# Recent dx Crohn's in [place], s/p EGD, then colonoscopy 01/08/24
# Anemia - chronic, no previous workup
# Leukopenia -chronic
- Per family, 2 of grandmother's maids in [place] with typhoid fever. Maids prepared food when pt in [facility].
- CT a/p intestinal thickening right colon. Per family changes seen in 12/2023 CT in [facility] before the colonoscopy.
- malaria smear pending
- HIV screen pending
- Repeat bcx neg to date.
-DC IV metronidazole
- Continue ceftriaxone 2g IV q24 (d3)
- Follow temps - may take time to defervesce
- Screen for latent TB in anticipation for future biologic for Crohn's.
At time of discharge, need referral to GI group to manage Crohn's and chronic anemia.
Chief Complaint
-: Fever and Bacteremia
Subjective / Review of Systems
Starting to feel better today.
Still + fever/sweats.
Vital Signs / Physical Exam
Vital Signs
Vital Signs
Temp Pulse Resp BP Pulse Ox
103.0 F H 119 18 97/58 100
02/02/24 07:00 02/02/24 07:00 02/02/24 07:00 02/02/24 07:00 02/02/24 07:00
Physical Exam
Constitutional: No Acute Distress and Non-toxic
Eyes: Sclera Anicteric
Pulmonary: Clear
Gastrointestinal: Soft, Non Tender and Non Distended
Extremities: Negative Edema
Neurological: AO x 3
Objective Data
Lab Data
Lab Results
02/02/24 08:57
02/02/24 08:57
Estimated Creat Clear 118 ml/min 02/02/24 08:57
Total Bilirubin 0.3 mg/dl (0.2-1.3) 02/02/24 08:57
AST 71 U/L (17-59) H 02/02/24 08:57
ALT 103 U/L (0-50) H 02/02/24 08:57
Alkaline Phosphatase 99 U/L (38-126) 02/02/24 08:57
Most recent labs reviewed.
Micro Results:
02/01/24 10:05 Blood Culture - Preliminary
Blood/Venous No Growth in 24 hours- Final report to follow
02/02/24 08:57 Blood Culture - Pending
Blood/Venous
02/02/24 08:57 Blood Parasites Smear - Pending
Blood/Venous
02/01/24 08:21 Blood Culture - Preliminary
Blood/Venous No Growth in 24 hours- Final report to follow
01/31/24 14:19 Blood Culture - Preliminary
Blood/Venous Positive culture in progress
Gram Stain - Preliminary
01/31/24 13:12 Blood Culture - Preliminary
Blood/Venous Positive culture in progress
Gram Stain - Preliminary
01/30/24 CXR: Normal
02/01/24 CT a/p with IV contrast: There is moderate wall thickening involving the distal ileum. Moderate wall thickening involving the right colon from the cecum through the right-sided and transverse colon. These findings are compatible with ileitis
and colitis. There is mesenteric lymphadenopathy, most prominent in the right lower abdomen and upper pelvis.
[2024-02-02] MEDS: STERILE WATER FOR INJECTION 20 ML IV (12:42)
[2024-02-02] MEDS: ROCEPHIN 2000 MG IV (12:42)
[2024-02-02 15:00] VITALS: BP 90/56
[2024-02-02 23:35] VITALS: BP 92/53
[2024-02-03 06:17] LABS: % Basophils 0.2 % (0-2); % Eosinophils 0.2 % (0-6); % Immature Granulocytes 0.6 % (0-0.5); % Lymphocytes 18.7 % (20.5-51.1); % Monocytes 8.7 % (1.7-9.3); % Neutrophils 71.6 % (42.2-75.2); Absolute Monocytes 0.5 10^3/uL (0.1-0.6); Absolute Neutrophils 3.9 10^3/uL (1.4-6.5); Hematocrit 29.8 % (39.0-52.0); Hemoglobin 10.1 g/dL (13.0-18.0); Mean Corp Hgb Conc. 33.9 g/dL (33.0-37.0); Mean Corpuscular Hgb 23.7 pg (27.0-31.0); Mean Corpuscular Volume 69.8 fL (80.0-94.0); Mean Platelet Volume 8.4 fL (7.4-10.4); Nucleated Red Blood Cells % 0 % (-); Platelet Count 249 10^3/uL (130-400); Red Blood Cell Count 4.27 10^6/uL (4.70-6.10); Red Cell Dist. Width 15.5 % (11.5-14.5); White Blood Cell Count 5.4 10^3/uL (4.8-10.8)
[2024-02-03 06:55] LABS: ALT (SGPT) 103 U/L (0-50); AST (SGOT) 85 U/L (17-59); Albumin 2.9 g/dl (3.5-5.0); Alkaline Phosphatase 87 U/L (38-126); Blood Urea Nitrogen 6 mg/dl (9-20); Calcium 8.3 mg/dl (8.4-10.2); Carbon Dioxide 19 mmol/L (22-30); Chloride 103 mmol/L (98-107); Estimated Creatinine Clearance 118 ml/min; Glucose 94 mg/dl (70-99); Potassium 3.7 mmol/L (3.5-5.1); Sodium 135 mmol/L (135-145); Total Bilirubin 0.2 mg/dl (0.2-1.3); Total Protein 5.8 g/dl (6.3-8.2); eGFR > 60.00
[2024-02-03 07:24] VITALS: BP 98/60
[2024-02-03] MEDS: FEOSOL 325 MG PO (08:15)
[2024-02-03] MEDS: VITAMIN D3 (cholecalciferol) 25 MCG PO (08:15)
[2024-02-03] MEDS: B COMPLEX w/VITAMIN C 1 CAPLET PO (08:15)
[2024-02-03] MEDS: FOLVITE 0.8 MG PO (08:15)
--- NOTE | 2024-02-03 10:19 | W.PN.ID1 ---
Date of Service
Date of Service: February 03, 2024
Today's Communication
See below.
Can dc home today.
Assessment / Plan
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
# Enteric/typhoid fever
# Elevated transaminases due to above
# Recent travel to [facility] x 3 weeks, return date 01/15/24
# Recent dx Crohn's in [place], s/p EGD, CT, then colonoscopy 01/08/24
# Anemia - chronic, no previous workup, likely due to Crohn's
# Leukopenia -chronic
- Per family, 2 of grandmother's maids in [place] with typhoid fever. Maids prepared food when pt in [place].
- CT a/p intestinal thickening right colon. Per family changes seen in 12/2023 CT in [place] before the colonoscopy.
- malaria smear negative
- HIV screen pending
- Repeat bcx's from 01/31, 02/01 negative
- After noon dose of ceftriaxone 2g IV q24 (d4), can dc home on Azithromycin 500mg po qd through 02/13/24.
- Discussed with patient and family:
Follow temps - may take up to 6 days to defervesce.
Monitor for acute abdomen which is a sign of intestinal perforation.
Be aware that typhoid fever can relapse and need to treat.
Recommend travel counselling/ vaccines at ID office prior to future travels.
# Recent dx Crohn's in [place], s/p EGD, then colonoscopy 01/08/24
- latent TB screen pending in anticipation for future biologic tx.
- Referral to GI group to manage Crohn's and chronic fe-deficient anemia.
Chief Complaint
-: Fever and Bacteremia
Subjective / Review of Systems
Pt continues to feel improved. Eating well. No abd pain. No diarrhea.
Vital Signs / Physical Exam
Vital Signs
Vital Signs
Temp Pulse Resp BP Pulse Ox
99.6 F 111 19 98/60 97
02/03/24 07:24 02/03/24 07:24 02/03/24 07:24 02/03/24 07:24 02/03/24 07:24
Selected Entries
02/02/24
20:52
Temp 103.3 F H
Physical Exam
Constitutional: No Acute Distress and Comfortable
Gastrointestinal: Soft, Non Tender, Non Distended and Normal Bowel Sounds
Extremities: Negative Edema
Objective Data
Lab Data
Lab Results
02/03/24 05:45
02/03/24 05:45
Estimated Creat Clear 118 ml/min 02/03/24 05:45
Total Bilirubin 0.2 mg/dl (0.2-1.3) 02/03/24 05:45
AST 85 U/L (17-59) H 02/03/24 05:45
ALT 103 U/L (0-50) H 02/03/24 05:45
Alkaline Phosphatase 87 U/L (38-126) 02/03/24 05:45
Most recent labs reviewed.
Micro Results:
02/01/24 10:05 Blood Culture - Preliminary
Blood/Venous No Growth in 48 hours- Final report to follow
02/02/24 08:57 Blood Culture - Preliminary
Blood/Venous No Growth in 24 hours- Final report to follow
01/31/24 13:12 Blood Culture - Final
Blood/Venous Salmonella species
Gram Stain - Final
01/31/24 14:19 Blood Culture - Final
Blood/Venous Salmonella species
Gram Stain - Final
02/01/24 08:21 Blood Culture - Preliminary
Blood/Venous No Growth in 48 hours- Final report to follow
02/02/24 08:57 Blood Parasites Smear - Final
Blood/Venous
01/30/24 CXR: Normal
02/01/24 CT a/p with IV contrast: There is moderate wall thickening involving the distal ileum. Moderate wall thickening involving the right colon from the cecum through the right-sided and transverse colon. These findings are compatible with ileitis
and colitis. There is mesenteric lymphadenopathy, most prominent in the right lower abdomen and upper pelvis.
Care Review
Plan reviewed with: Physician (Dr. Dong Barber)
--- NOTE | 2024-02-03 12:19 | W.PN.HOSP.TC ---
Today's Communication/Plan
-
-ceftriaxone- can transition to Azithromycin to for 10 more day
-Follow temps
- Monitor for acute abdomen which is a sign of intestinal perforation.
CBC, CMP outpatient
low residue diet
f/u PCP, GI outpatient
Anemia work up outpatient
Assessment / Plan
Assessment / Plan
23yo M with recent trip to [facility], came back on 01/15/24 developed fevers in the evening of 01/22/24 with headache and neck pain. Headache and neck pain resolved, but Bcx from 01/30/24 done in ED found bacteremia.
As per patient - his family memner in [facility] recently was diagnosed with typhus.
A/P:
## Salmonella typhi/paratyphi bacteremia (4 sets both aerobic and anaerobic bottles)
#Sepsis, POA
# Enteric/typhoid fever
-ceftriaxone- can transition to Azithromycin to for 10 more day
-Follow temps - may take up to 6 days to defervesce.
- Monitor for acute abdomen which is a sign of intestinal perforation.
- Be aware that typhoid fever can relapse and need to treat.
-Recommend travel counselling/ vaccines at ID office prior to future travels.
#transaminitis
without bilirubinemia
2/2 to above
f/u cmp outpatient
#LORI
cont iron
f/u wiith outpatient pcp/gi
#Mild leukopenia
reactive
-improving
HIV test pending
Tb quantiferon pending
#Crohns Disease
-educated on diet, low residue
-given info for our GI
#Hyponatremia
-most likely 22/ to volume loss
-resolved with resuscitation
DVT ppx lovenox
Full code
More than 30 minutes spent in discharge including
Final examination of the patient
Summarizing hospital stay
Instructions for continuing care to all relevant caregivers
Preparation of discharge records, prescriptions, and referral forms
Total time spent (35 in minutes):
Anticipated Discharge: Today
Subjective/Interval History
-
Date of Service: February 03, 2024
able to tolerate diet, feeling somewhat better
Objective Data
-
Labs:
Laboratory Results
02/03/24
05:45
WBC 5.4
Hgb 10.1 L
Hct 29.8 L
Plt Count 249
Sodium 135
Potassium 3.7
Chloride 103
Carbon Dioxide 19 L
BUN 6 L
Creatinine 0.8
Glucose 94
Calcium 8.3 L
Total Bilirubin 0.2
AST 85 H
ALT 103 H
Alkaline Phosphatase 87
Vital Signs:
Vital Signs
Temp Pulse Resp BP Pulse Ox
99.6 F 111 19 98/60 97
02/03/24 07:24 02/03/24 07:24 02/03/24 07:24 02/03/24 07:24 02/03/24 07:24
I&O
02/02/24 02/03/24 02/04/24
06:59 06:59 06:59
Intake Total 1200 / 1200 960 / 960
Output Total 100 / 100
Balance 1100 / 1100 960 / 960
Review of Systems
-
History Source: Patient
All other systems: Not reviewed unless documented
Physical Exam
-
General: No Apparent Distress
HEENT: Normocephalic
GI: Soft, Nontender and Nondistended
Musculoskeletal: No Clubbing and No Cyanosis
Skin: Warm
Neuro: Awake, Alert, Oriented and AO x 3
Psych: Calm
Data Reviewed
-
Diagnostic Radiology: Image personally visualized and interpreted and Report Reviewed by me
CT Scan: Image personally visualized and interpreted and Report Reviewed by me
Labs: Labs Reviewed by me
[2024-02-03] MEDS: STERILE WATER FOR INJECTION 20 ML IV (12:23)
[2024-02-03] MEDS: ROCEPHIN 2000 MG IV (12:24)
--- NOTE | 2024-02-03 12:41 | W.DS.TRANS ---
DC Summary - [employer]
-
Discharge Instructions:
Discharge Diagnosis/Procedures # Salmonella typhi/paratyphi bacteremia (4 sets
both aerobic and anaerobic bottles)
# Enteric/typhoid fever
# Elevated transaminases
Diet Low Fiber,Low Residue
Additional Diets Crohns/IBD Diet
Activity As tolerated
Blood Work CBC, CMP in 1 week with pcp
Anemia work up with PCP/GI
Others Tests Work up with GI
Instructions: Crohn disease in adults
Inflammatory Bowel Disease (DC)
Enteric (Typhoid and Paratyphoid) Fever (DC)
Stand-Alone Forms:
Changes to Home Medications: Yes
Discharge Medications:
DC Medications w/original date entered in [email or web address]
acetaminophen 500 mg tablet (Tylenol Extra Strength) 500 mg PO Q6HPRN PRN mild pain 01/31/24
cholecalciferol (vit D3) 1,000 unit-vitamin K2 (MK4) 100 mcg tablet 1 tab PO DAILY Supplement 01/31/24
ferrous sulfate 105 mg-C 500 mg-folic acid 800 mcg tablet,extend.rel 1 tab PO DAILY Supplement 01/31/24
vitamin B complex 1 tab PO DAILY Supplement 01/31/24
azithromycin 500 mg tablet 500 mg PO DAILY 10 days #10 tabs 02/03/24
Home Medication Changes
azithromycin 500 mg tablet 500 mg PO DAILY 10 days #10 tabs 02/03/24
Pending Results: No
[2024-02-03 13:49] VITALS: BP 99/44
[2024-02-03 14:59] VITALS: BMI 17.5
[2024-02-03 20:10] LABS: Hepatitis B Surface Antigen Negative (Negative)
[2024-02-03 20:28] LABS: Hepatitis B Core Ab, Total Negative (Negative); Hepatitis B Surface Antibody Positive; Hepatitis C Antibody Negative (Negative)
[2024-02-03 20:38] LABS: Hepatitis A Antibody, Total Positive (Negative)
[2024-02-03 21:11] LABS: Hepatitis A IgM Antibody Negative (Negative); Hepatitis B Core Ab, IgM Negative (Negative)
[2024-02-04 13:53] LABS: Quantiferon Mitogen minus NIL 2.33 IU/mL; Quantiferon NIL 2.66 IU/mL; Quantiferon Plus TB1 minus NIL 0.34 IU/mL (<=0.34); Quantiferon Plus TB2 minus NIL 0.17 IU/mL (<=0.34); Quantiferon TB Gold Plus Negative (Negative)
[2024-02-04 15:25] LABS: HIV Combo Negative (Negative)
== END 2024-02-03 14:55 | disposition home or self-care (01) | DRG 872 ==
LOC: 3 WEST ACU 14:02
PROVIDERS: Physician Assistant; Registered Nurse; ADMITTING PHYSICIAN Hospitalist; ATTENDING PHYSICIAN Internal Medicine; CONSULT PHYSICIAN Internal Medicine Infectious Disease; EMERGENCY PHYSICIAN Emergency Medicine; FAMILY PHYSICIAN Family Medicine
DX: A02.1 Salmonella sepsis (principal); E87.1 Hypo-osmolality and hyponatremia; K50.90 Crohn's disease, unspecified, without complications; D63.8 Anemia in other chronic diseases classified elsewhere; E86.1 Hypovolemia; D72.819 Decreased white blood cell count, unspecified; Z79.899 Other long term (current) drug therapy
CPT/HCPCS: 74177; 80053; 85025; 86480; 86704; 86705; 86706; 86708; 86709; 86803; 87015; 87040; 87205; 87207; 87340; 87389; 87522; 96374; 99284; Q9967

== ENCOUNTER → 2024-04-27 08:05 | Outpatient (REF) | payer BC, SELFPAY | LOC: PAVMRI 08:05 | PROVIDERS: ATTENDING PHYSICIAN Internal Medicine Gastroenterology; FAMILY PHYSICIAN Family Medicine | DX: K50.00 Crohn's disease of small intestine without complications (principal) | CPT/HCPCS: 72197; 74183; A9575 ==